=== PATIENT | male | born 1955 | race Caucasian/White ===

== ENCOUNTER → 2017-09-10 12:16 | Outpatient (CLI) | payer SELFPAY ==
[2017-09-10 12:36] LABS: Add Manual Diff / Slide Review NO; Basophils Percent Auto 1.2 % (0-2); Eosinophils Percent Auto 6.7 % (2-4); Hematocrit 38.8 % (41-53); Hemoglobin 13.3 g/dL (13.5-17.5); Lymphocytes Percent Auto 32.1 % (25-40); Mean Corpuscular HGB Conc 34.4 % (30-36); Mean Corpuscular Hemoglobin 29.8 PG (26-34); Mean Corpuscular Volume 86.6 fL (80-100); Monocytes Percent Auto 7.2 % (3-14); Neutrophils Absolute Auto 2900 /uL (3000-5900); Neutrophils Percent Auto 52.8 % (50-75); Platelet Count 238 X10^3/uL (150-400); Red Blood Cell Count 4.48 X10^6/uL (4.5-5.9); Red Cell Distribution Width 12.9 % (11.6-14.8); White Blood Cell Count 5.5 X10^3/uL (4.5-11.0)
[2017-09-10 12:46] LABS: Blood Urea Nitrogen 18 mg/dL (9-20); Calcium 9.1 mg/dL (8.4-10.2); Carbon Dioxide 29 mmol/L (22-32); Chloride 99 mmol/L (98-107); Estimated Glomerular Filt Rate > 60.0 mL/min (>60); Glucose 97 mg/dL (80-110); HEMOLYSIS < 15 (0-50); Sodium 138 mmol/L (137-145)
== END ==
PROVIDERS: PCP Family Medicine; Visit Provider Family Medicine
DX: I10 Essential (primary) hypertension (principal)
CPT/HCPCS: 36415; 80048; 85025

== ENCOUNTER → 2019-11-03 10:23 | Outpatient (CLI) | payer OTHER, SELFPAY ==
[2019-11-03 12:24] LABS: Blood Urea Nitrogen 16 mg/dL (9-20); Calcium 9.5 mg/dL (8.4-10.2); Carbon Dioxide 34 mmol/L (22-32); Chloride 99 mmol/L (98-107); Cholesterol 181 mg/dL (140-199); Estimated Glomerular Filt Rate > 60.0 mL/min (>60); Glucose 98 mg/dL (80-110); HDL Cholesterol 49 mg/dL (40-60); HEMOLYSIS < 15 (0-50); LDL Cholesterol Calculated 104 mg/dL (<100); Potassium 4.2 mmol/L (3.4-5.1); Sodium 136 mmol/L (137-145); Triglycerides 140 mg/dL (35-150)
[2019-11-03 12:32] LABS: Vitamin D 25 Hydroxy (D3) 14.9 ng/mL (30.0-100.0)
[2019-11-03 12:51] LABS: TSH w/ Reflex to FT4 1.94 uIU/mL (0.47-4.68)
[2019-11-03 12:53] LABS: Prostate Specific Antigen Scrn 0.162 ng/mL (0.1-4.0)
== END ==
PROVIDERS: PCP Student in an Organized Health Care Education/Training Program; Referring Provider Student in an Organized Health Care Education/Training Program; Visit Provider Student in an Organized Health Care Education/Training Program
DX: Z12.5 Encounter for screening for malignant neoplasm of prostate (principal); F32.9 Major depressive disorder, single episode, unspecified; I10 Essential (primary) hypertension; R68.82 Decreased libido; E55.9 Vitamin D deficiency, unspecified; Z13.220 Encounter for screening for lipoid disorders
CPT/HCPCS: 36415; 80048; 80061; 82306; 84443; G0103

== ENCOUNTER → 2019-12-01 09:08 | Outpatient (CLI) | payer OTHER, SELFPAY ==
--- NOTE | 2019-12-01 09:09 | DI.ECHO.S_ITS ---
[facility] +---------+ : : [address] : : : : [id number] : : : : Phone: [phone]+ Echocardiogram Report + + :Name: CAROL MATHEWS Study Date: 12/01/2019 Height: 70 in : :[facility] Weight: 250 lb : : Gender: Male BSA: 2.3 m2 : :: 1955 Age: 64 yrs BP: 153/85 mmHg: :Reason For Study: LVH ON EKG, HYPERTENSION : :Ordering Physician: WENDY HASTINGS Performed By: Jessi Wolf : :Referring: WENDY HASTINGS : + + Interpretation Summary 1) Normal left ventricular thickness, size, wall motion and systolic function (EF 55-60%). 2) Normal right ventricular size and function. 3) No significant valvular abnormalities. 4) Hypertnsion present [facility] study (BP 153/85mmHg). 5) No prior Echo available for comparison. Procedure: A two-dimensional transthoracic echocardiogram with color flow and Doppler was performed. The study quality was technically adequate. There is no prior echocardiogram noted for this patient. The patient was in sinus bradycardia with heart rates between 53-60 bpm during the exam. Left Ventricle: The left ventricle is normal in size and wall thickness. The ejection fraction is estimated to be 55-60%. Diastolic parameters suggest a relaxation abnormality of the left ventricle, consistent with probable normal filling pressures. Right Ventricle: The right ventricle is normal in size and function. Atria: The left atrium is moderately dilated. Right atrial size is normal. There is no Doppler evidence for an interatrial shunt. Mitral Valve: The mitral valve is normal in structure and function. There is trace mitral regurgitation. Aortic Valve: The aortic valve is trileaflet. There is discrete nodular thickening of the right coronary cusp. There is no aortic valve stenosis. No aortic regurgitation is present. Tricuspid Valve: The tricuspid valve is normal in structure and function. Pulmonary artery pressures cannot be estimated because of the lack of a measurable TR jet velocity. There is trace tricuspid regurgitation. Pulmonic Valve: The pulmonic valve is normal in structure and function. There is no pulmonic valvular regurgitation. Great Vessels: The aortic root is normal size. The dimensions of the ascending aorta are normal. The inferior vena cava was not well visualized. Pericardium/ Pleura There is no pericardial effusion. There is no pleural effusion. MMode/2D Measurements & Calculations LVIDd: 5.6 cm LVOT diam: 2.1 cm LVIDs: 3.5 cm Ao root diam: 3.0 cm FS: 38.4 % asc Aorta Diam: 3.5 cm EPSS: 1.6 cm Ao Arch Diam (Prox Trans): 3.3 cm IVSd: 0.97 cm LVPWd: 0.90 cm LV hernandez. diameter/BSA (cm/m^2): 2.4 LV sys. diameter/BSA (cm/m^2): 1.5 LA A2 area: 23.1 cm2 RA long axis: 4.8 cm LA A4 area: 27.7 cm2 RA area: 19.5 cm2 LA length (vol): 6.2 cm RA vol: 67.1 ml LA vol: 87.4 ml RA : 29.3 ml/m2 LA vol index: 38.1 ml/m2 RVD1 (basal): 3.9 cm TAPSE: 2.1 cm Doppler Measurements & Calculations Ao V2 max: 177.9 cm/sec LVOT Max Js: 115.0 cm/sec Ao V2 mean: 119.7 cm/sec LV V1 max P.3 mmHg Ao max P.7 mmHg LV V1 VTI: 25.9 cm Ao mean P.5 mmHg KEN(I,D): 2.0 cm2 Ao V2 VTI: 44.2 cm KEN(V,D): 2.2 cm2 sev ratio: 0.59 KEN indexed to BSA (cm^2/m^2): 0.88 MV E max js: 109.2 cm/sec PA V2 max: 75.9 cm/sec MV A max js: 86.9 cm/sec PA V2 mean: 49.5 cm/sec MV E/A: 1.3 PA mean P.1 mmHg Med Peak E' Js: 8.4 cm/sec PA pr(Accel): 22.5 mmHg E/E' med: 13.0 Lat Peak E' Js: 10.6 cm/sec E/E' lat: 10.3 E/e' average: 11.6 MV dec time: 0.23 sec SV([facility]): 89.2 ml Reading Physician:12:33 PM
== END ==
PROVIDERS: PCP Student in an Organized Health Care Education/Training Program; Referring Provider Student in an Organized Health Care Education/Training Program; Visit Provider Student in an Organized Health Care Education/Training Program
DX: R94.31 Abnormal electrocardiogram [ECG] [EKG] (principal); I10 Essential (primary) hypertension
CPT/HCPCS: 93306

== ENCOUNTER → 2021-02-22 07:04 | Outpatient (CLI) | payer OTHER, SELFPAY ==
[2021-02-22 08:56] LABS: BUN Creatinine Ratio 19.3 (6-22); Blood Urea Nitrogen 17 mg/dL (9-20); Calcium 9.7 mg/dL (8.4-10.2); Carbon Dioxide 31 mmol/L (22-32); Chloride 97 mmol/L (98-107); Estimated Glomerular Filt Rate > 60.0 mL/min (>60); Glucose 123 mg/dL (80-110); HEMOLYSIS < 15 (0-50); Potassium 4.2 mmol/L (3.4-5.1); Sodium 137 mmol/L (137-145)
[2021-02-22 09:14] LABS: Vitamin D 25 Hydroxy (D3) 30.4 ng/mL (30.0-100.0)
[2021-02-24 12:12] LABS: Fecal Immunochemical Test Negative (Negative)
== END ==
PROVIDERS: PCP Student in an Organized Health Care Education/Training Program; Referring Provider Student in an Organized Health Care Education/Training Program; Visit Provider Student in an Organized Health Care Education/Training Program
DX: I10 Essential (primary) hypertension (principal); Z12.11 Encounter for screening for malignant neoplasm of colon; E55.9 Vitamin D deficiency, unspecified
CPT/HCPCS: 36415; 80048; 82274; 82306

== ENCOUNTER → 2022-02-14 15:39 | Outpatient (CLI) | payer OTHER, SELFPAY ==
[2022-02-14 16:55] LABS: BUN Creatinine Ratio 16.9 (6-22); Blood Urea Nitrogen 15 mg/dL (9-20); Calcium 9.2 mg/dL (8.4-10.2); Carbon Dioxide 28 mmol/L (22-32); Chloride 99 mmol/L (98-107); Estimated Glomerular Filt Rate > 60 mL/min (>60); Glucose 96 mg/dL (80-110); HEMOLYSIS < 15 (0-50); Potassium 3.7 mmol/L (3.4-5.1); Sodium 137 mmol/L (137-145)
[2022-02-14 23:22] LABS: Prostate Specific Antigen Scrn 0.173 ng/mL (0.1-4.0)
[2022-02-15 16:43] LABS: Hep C Virus Ab w/Reflex Quant NEGATIVE s/c (NEGATIVE)
== END ==
PROVIDERS: PCP Student in an Organized Health Care Education/Training Program; Referring Provider Student in an Organized Health Care Education/Training Program; Visit Provider Student in an Organized Health Care Education/Training Program
DX: Z12.5 Encounter for screening for malignant neoplasm of prostate (principal); Z11.59 Encounter for screening for other viral diseases; I10 Essential (primary) hypertension
CPT/HCPCS: 36415; 80048; 86803; G0103

== ENCOUNTER → 2023-03-08 15:20 | Outpatient (CLI) | payer MEDICARE, SELFPAY ==
[2023-03-08 16:48] LABS: Add Manual Diff / Slide Review NO; Basophils Absolute Auto 100 /uL (0-100); Basophils Percent Auto 1.2 % (0-2); Eosinophils Absolute Auto 400 /uL (0-450); Hematocrit 38.1 % (41-53); Hemoglobin 12.8 g/dL (13.5-17.5); Lymphocytes Absolute Auto 1900 /uL (1100-4500); Lymphocytes Percent Auto 31.9 % (25-40); Mean Corpuscular HGB Conc 33.7 % (30-36); Mean Corpuscular Hemoglobin 29.3 PG (26-34); Mean Corpuscular Volume 86.9 fL (80-100); Monocytes Absolute Auto 500 /uL (0-900); Monocytes Percent Auto 8.6 % (3-14); Neutrophils Absolute Auto 3100 /uL (1500-7000); Neutrophils Percent Auto 52.3 % (50-75); Platelet Count 260 X10^3/uL (150-400); Red Blood Cell Count 4.38 X10^6/uL (4.5-5.9); Red Cell Distribution Width 13.3 % (11.6-14.8); White Blood Cell Count 5.9 X10^3/uL (4.5-11.0)
[2023-03-08 16:57] LABS: Hemoglobin A1C% w Est Avg Glu 5.8 % (4.0-6.0)
[2023-03-08 16:59] LABS: Alanine Aminotransferase 25 IU/L (<50); Albumin 4.5 g/dL (3.5-5.0); Albumin Globulin Ratio 1.7 (1.0-2.8); Alkaline Phosphatase 80 U/L (38-126); Aspartate Aminotransferase 31 IU/L (17-59); BUN Creatinine Ratio 22.9 (6-22); Bilirubin Total 0.4 mg/dL (0.2-1.3); Blood Urea Nitrogen 22 mg/dL (9-20); Calcium 10.1 mg/dL (8.4-10.2); Carbon Dioxide 33 mmol/L (22-32); Chloride 99 mmol/L (98-107); Cholesterol 256 mg/dL (140-199); Estimated Glomerular Filt Rate > 60 mL/min (>60); Globulin 2.6 g/dL (1.7-4.1); Glucose 76 mg/dL (80-110); HDL Cholesterol 53 mg/dL (40-60); HEMOLYSIS < 15 (0-50); LDL Cholesterol Calculated 168 mg/dL (<100); Potassium 4.6 mmol/L (3.4-5.1); Sodium 138 mmol/L (137-145); Total Protein 7.1 g/dL (6.3-8.2); Triglycerides 175 mg/dL (35-150)
[2023-03-08 17:30] LABS: Prostate Specific Antigen < 0.064 ng/mL (0.10-4.00)
[2023-03-08 17:48] LABS: Vitamin B12 387 pg/mL (239-931)
== END ==
PROVIDERS: PCP Family Medicine; Referring Provider Family Medicine; Visit Provider Family Medicine
DX: Z00.00 Encounter for general adult medical examination without abnormal findings (principal); I10 Essential (primary) hypertension; R41.3 Other amnesia
CPT/HCPCS: 36415; 80053; 80061; 82607; 83036; 84153; 85025

== ENCOUNTER 2023-03-28 09:03 | Day surgery (SDC) | payer MEDICARE, SELFPAY ==
--- NOTE | 2023-03-28 | PATH_ITS ---
[facility] Accession Number: [id number] No. of containers..05 Tissue . 01 Material submitted: . PART A: cecum - CECAL POLYP PART B: colon - ASCENDING POLYPS PART C: colon - TRANSVERSE POLYP PART D: colon - DESCENDING POLYPS PART E: rectum - RECTAL POLYPS . 01 Diagnosis: A. Cecal Polyp, Biopsy: Sessile serrated adenoma. . B. Ascending Colon Polyps, Biopsy: Sessile serrated adenomas. . C. Transverse Colon Polyp, Biopsy: Tubular adenoma. . D. Descending Colon Polyps, Biopsy: Hyperplastic polyp. Additional colonic mucosa with no significant diagnostic alterations. . E. Rectal Polyps, Biopsy: Hyperplastic polyps. [facility] 04/01/2023 1346 Local . 01 Electronically signed: . Karina Chavez MD, Pathologist NPI- [id number] . 01 Gross description: . Part A: CECAL POLYP: Received in formalin is 1 fragment(s) of brown, soft tissue measuring 0.7 x 0.4 x 0.2 cm submitted entirely in 1 cassette(s) Part B: ASCENDING POLYPS: Received in formalin is multiple fragment(s) of brown, soft tissue measuring 1.2 x 0.5 x 0.1 cm in aggregate submitted entirely in 1 cassette(s) Part C: TRANSVERSE POLYP: Received in formalin is 1 fragment(s) of brown, soft tissue measuring 0.8 x 0.3 x 0.1 cm submitted entirely in 1 cassette(s) Part D: DESCENDING POLYPS: Received in formalin is 1 fragment(s) of brown, soft tissue measuring 0.3 x 0.3 x 0.1 cm to 0.2 x 0.1 x 0.1 cm submitted entirely in 1 cassette(s) Part E: RECTAL POLYPS: Received in formalin is multiple fragment(s) of brown, soft tissue measuring 1.2 x 0.5 x 0.1 cm in aggregate submitted entirely in 1 cassette(s) /AAY 03/30/2023 0558 Local . 01 Pathologist provided ICD-10: D12.0, D12.2, D12.3, D12.4, D12.8 . 01 CPT . 962839, 114374, 118446, 270359, [id number] Specimen Comment: A courtesy copy of this report has been sent to [phone] Performed at: 01 [facility] [address] [place] [address], [place], [place] [id number] MD Kiran Gayle MD Phone: [phone]
[2023-03-28 10:28] VITALS: BP 143/85; PULSE 86; RESP 16; TEMP 36.6; O2SAT 95
--- NOTE | 2023-03-28 10:30 | P.HP_ITS ---
History of Present Illness History of Present Illness Date Patient Seen: 03/28/23 Time Patient Seen: 10:30 Chief complaint: Colonoscopy Narrative: Javi is a 67-year-old man who is here for colonoscopy. His last 1 was about 14 years ago. No family history of colon cancer. [facility], [facility] Medical History (Updated 03/28/23 @ 10:31 by Curtis Lopez MD) Depression (10/26/14) Encounter for subsequent annual wellness visit (AWV) in Medicare patient Pure hypercholesterolemia Vision disorder GERD (gastroesophageal reflux disease) Hypertension Depression Bipolar disorder (~2001) Anxiety Epilepsy (~2009) Seizure Restless leg syndrome ADHD (~2001) Mumps (~1960) Chicken pox (~1959) Vertigo Tinnitus Hearing loss (~1972) Reduced libido (04/02/17) Surgical History (Updated 07/10/18 @ 22:11 by Lis Mata) Status post knee surgery (~1979) Status post biopsy (~1989) History of cataract removal with insertion of prosthetic lens (~1997) History of cataract removal with insertion of prosthetic lens (~1999) Family History (Updated 07/10/18 @ 22:12 by Lis Mata) Father Cardiac disease Mother No problems noted. Social History Smoking Status: Never smoker Meds Home Medications and Allergies Home Medications Medication Instructions Recorded Confirmed Type esomeprazole magnesium 20 mg 20 mg PO DAILY 02/14/22 03/08/23 History capsule,delayed release (Nexium) lisinopril 10 mg tablet 10 mg PO QDAY #90 tabs 05/07/22 03/28/23 Rx triamterene 37.5 1 cap PO QDAY #90 caps 11/20/22 03/28/23 Rx mg-hydrochlorothiazide 25 mg capsule finasteride 5 mg tablet See Rx Instructions .Route 12/28/22 03/28/23 Rx .COMPLEX #90 tabs hydroxyzine HCl 25 mg tablet 25 mg PO TID itching #270 tabs 01/15/23 03/28/23 Rx gabapentin 300 mg capsule 300 mg PO TID #270 caps 02/06/23 03/28/23 Rx fluoxetine 20 mg capsule 60 mg (3 x 20 mg) PO DAILY #270 03/26/23 03/28/23 Rx caps Allergies Allergy/AdvReac Type Severity Reaction Status Date / Time pollen Allergy Unknown Uncoded 01/18/24 10:24 Exam Const General: No acute distress Resp Effort & Inspection: normal respiratory effort Assessment & Plan Assessment and plan (1) Colon cancer screening: Status: Acute Plan Javi is a 67-year-old man who is here for colon cancer screening. We reviewed the risks and benefits of colonoscopy for colon cancer screening and he would like to proceed.
--- NOTE | 2023-03-28 10:30 | PM.OP.COLON ---
Operative Date/Time/Diagnoses Date of procedure: 03/28/23 Time of procedure: 11:46 Pre-op diagnosis: Colon cancer screening Post-op diagnosis: same Procedure & Clinicians Study performed: Colonoscopy Same procedure as scheduled: Yes Surgeon: Curtis Lopez Procedure Notes Procedure in detail: Surgeon: Curtis Lopez MD Anesthesia: Nataly Coates CRNA Procedure: The patient was brought to the endoscopy suite, placed in left lateral decubitus position. The patient was connected to monitoring devices. A time-out was performed. Sedation was administered. Once the patient was adequately sedated, a digital rectal exam was performed and was normal. The scope was then inserted and advanced with some difficulty to the cecum where the appendiceal orifice was identified and photographed. The scope was then slowly withdrawn over greater than 6 minutes. The mucosa was thoroughly inspected. There was a 7 mm polyp in the cecum removed with a cold snare. There was a pair of 7 mm polyps in the ascending colon removed with cold snare and sent together. There was a 5 mm polyp in the transverse colon removed with a cold snare. There were 2 7 mm polyps in the descending colon removed with cold snare. There were numerous polyps in the rectum, most likely hyperplastic polyps. A few of these were removed with a cold snare and several were removed with a Jumbo cold forceps. There were at least 5 polyps removed from the rectum. The scope was retroflexed in the rectum. No other abnormalities were seen. The scope was straightened and removed. The patient was awakened and brought to recovery. Scope withdrawal time: 28 minutes Sedation time: 45 minutes EBL: 5 mL Findings: Multiple subcentimeter polyps as described above Post-procedure Disposition: PACU
[2023-03-28 11:50] VITALS: BP 102/68; PULSE 82; RESP 12; TEMP 36.8; O2SAT 94
[2023-03-28 11:54] VITALS: PULSE 76; RESP 15; TEMP 36.7; O2SAT 94
[2023-03-28 11:55] VITALS: BP 115/74
[2023-03-28 12:00] VITALS: BP 117/71; PULSE 77; RESP 12; O2SAT 94
[2023-03-28 12:07] VITALS: BP 119/70; PULSE 75; RESP 15; O2SAT 94
== END 2023-03-28 12:15 | disposition home or self-care (01) ==
PROVIDERS: PCP Family Medicine; Referring Provider Surgery; Visit Provider Surgery
PROC: 0DJD8ZZ Inspection of Lower Intestinal Tract, Via Natural or Artificial Opening Endoscopic (ICD-10-PCS; CPT 45378; principal; 2023-03-28 10:15)
DX: Z12.11 Encounter for screening for malignant neoplasm of colon (principal); D12.0 Benign neoplasm of cecum; D12.2 Benign neoplasm of ascending colon; D12.3 Benign neoplasm of transverse colon; K63.5 Polyp of colon; K62.1 Rectal polyp
CPT/HCPCS: 45385; 45380; J2704

== ENCOUNTER → 2023-04-16 15:20 | Outpatient (CLI) | payer MEDICARE, SELFPAY ==
[2023-04-16 16:59] LABS: Influenza A - CEPHEID Flu A NEGATIVE (NEGATIVE); Influenza B - CEPHEID Flu B NEGATIVE (NEGATIVE); Respiratory Syncytial Virus Negative (Negative)
[2023-04-16 17:07] LABS: COVID-19 CEPHEID 4-PLEX PCR POSITIVE (Negative)
== END ==
PROVIDERS: PCP Family Medicine; Visit Provider Family Medicine
DX: J02.9 Acute pharyngitis, unspecified (principal); J34.89 Other specified disorders of nose and nasal sinuses; J06.9 Acute upper respiratory infection, unspecified
CPT/HCPCS: 0241U

== ENCOUNTER → 2023-05-02 13:48 | Outpatient (CLI) | payer MEDICARE, SELFPAY | LOC: CAR 13:49 | PROVIDERS: PCP Family Medicine; Referring Provider Family Medicine; Visit Provider Family Medicine | DX: R00.2 Palpitations (principal) | CPT/HCPCS: 93246 ==

== ENCOUNTER → 2023-07-05 15:09 | Outpatient (CLI) | payer MEDICARE, SELFPAY ==
--- NOTE | 2023-07-05 15:10 | DI.NM.S_ITS ---
PROCEDURE: NM EXERCISE TREADMILL NON NUC COMPARISON: None. INDICATIONS: chest pain FINDINGS: The patient exercised for 4 minutes and 36 seconds reaching 97% of maximum predicted heart rate. Appropriate BP response to exercise. 7.0 METs, ROSA +29%. No angina and no significant ectopy during the study. Mild horizontal ST depressions in the lateral leads during recovery. IMPRESSION: Abnormal treadmill ECG only stress test with mild horizontal ST depressions in the lateral leads during recovery. No angina during the study. Reduced exercise tolerance (7.0 METs, ROSA +29%). Recommend exercise stress test with imaging (example nuclear stress test). Dictated by: Ashley De Luna MD on 07/08/2023 at 13:06 Approved by: Ashley De Luna MD on 07/08/2023 at 13:10
== END ==
PROVIDERS: PCP Family Medicine; Referring Provider Family Medicine; Visit Provider Family Medicine
DX: R07.89 Other chest pain (principal); I47.10 Supraventricular tachycardia, unspecified; R00.2 Palpitations; R94.39 Abnormal result of other cardiovascular function study
CPT/HCPCS: 93017

== ENCOUNTER 2023-11-03 06:32 | Emergency (ER) | payer MEDICARE, SELFPAY ==
[2023-11-03] VITALS (39 sets, daily range): BP systolic 87–143; BP diastolic 46–80; PULSE 49–74; RESP 12–45; TEMP 36.9–37.1; O2SAT 96–100; BMI 37.3
--- NOTE | 2023-11-03 06:44 | DI.RAD.S_ITS ---
PROCEDURE: XR CHEST 1V INDICATIONS: syncope TECHNIQUE: One view of the chest was acquired. COMPARISON: [facility], CT, CT HEAD/BRAIN WO CON, 11/03/2023, 6:49. FINDINGS: Surgical changes and devices: None. Lungs and pleura: Lungs are clear. No pleural effusions or pneumothorax. Mediastinum: Mediastinal contours appear normal. Heart size is mildly enlarged. There is a likely hiatal hernia. Atherosclerotic calcification of the aortic arch is noted. Bones and chest wall: No suspicious bony lesions. Age-appropriate bony degenerative changes are seen. Overlying soft tissues appear unremarkable. IMPRESSION: Clear lungs. Mild cardiomegaly. Dictated by: Lee Sharpe M.D. on 11/03/2023 at 6:10 Approved by: Lee Sharpe M.D. on 11/03/2023 at 6:11
--- NOTE | 2023-11-03 06:44 | DI.CT.S_ITS ---
PROCEDURE: CT HEAD/BRAIN WO CON INDICATIONS: syncope, probable head inj TECHNIQUE: Noncontrast 4.5 mm thick angled axial sections acquired from the foramen magnum to the vertex, with coronal and sagittal reformats. For radiation dose reduction, the following was used: automated exposure control, adjustment of mA and/or kV according to patient size. COMPARISON: [facility], CR, XR CHEST 1V, 11/03/2023, 6:43. FINDINGS: Image quality: Diagnostic. CSF spaces: Basal cisterns are patent. No extra-axial fluid collections. The ventricles are symmetric in size and shape. Brain: No intracranial bleeds or masses. There is cerebral volume loss for age, with resultant ventricular and sulcal prominence. There are periventricular and deep white matter chronic small vessel ischemic changes. There is intracranial internal carotid artery atherosclerosis. Skull and face: Calvarium and visualized facial bones appear intact, without suspicious lesions. Sinuses: Visualized sinuses and mastoids are clear. IMPRESSION: No acute intracranial hemorrhage is seen. No acute intracranial pathology. Dictated by: Lee Sharpe M.D. on 11/03/2023 at 6:11 Approved by: Lee Sharpe M.D. on 11/03/2023 at 6:12
--- NOTE | 2023-11-03 07:25 | EKG_ITS ---
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
[2023-11-03] MEDS: SODIUM CHLORIDE 0.9% 1,000 ML 1000 ML IV ×2 (07:26→08:02)
[2023-11-03 07:32] LABS: Add Manual Diff / Slide Review NO; Basophils Absolute Auto 0 /uL (0-100); Basophils Percent Auto 0.4 % (0-2); Eosinophils Absolute Auto 300 /uL (0-450); Eosinophils Percent Auto 3.7 % (2-4); Hematocrit 39.1 % (41-53); Hemoglobin 13.3 g/dL (13.5-17.5); Lymphocytes Absolute Auto 1200 /uL (1100-4500); Lymphocytes Percent Auto 17.3 % (25-40); Mean Corpuscular HGB Conc 33.9 % (30-36); Mean Corpuscular Hemoglobin 29.5 PG (26-34); Monocytes Absolute Auto 400 /uL (0-900); Monocytes Percent Auto 5.7 % (3-14); Neutrophils Absolute Auto 5200 /uL (1500-7000); Neutrophils Percent Auto 72.9 % (50-75); Platelet Count 218 X10^3/uL (150-400); Red Blood Cell Count 4.49 X10^6/uL (4.5-5.9); Red Cell Distribution Width 13.3 % (11.6-14.8); White Blood Cell Count 7.1 X10^3/uL (4.5-11.0)
[2023-11-03 07:38] LABS: INR 1.1 (0.9-1.3); Prothrombin Time 12.1 SECONDS (9.4-12.5)
--- NOTE | 2023-11-03 07:39 | ED.FALL ---
HPI - Fall General Chief Complaint: Fall Stated Complaint: Syncope in shower Time Seen by Provider: 11/03/23 06:35 Source: patient and EMS Mode of arrival: EMS History of Present Illness HPI Narrative: 68-year-old gentleman with a history of hypertension hyperlipidemia, reflux, BPH, depression, history of palpitations with recent Zio patch confirming episodes of prolonged SVT. Patient notes that he will have episodes will he will sleep for multiple days at a time without eating or drinking. Apparently he woke up this morning after almost 48 hours of sleeping got up to take shower, was bending forward and had a brief episode of syncope. reports that she was in the bathroom with the time, she was able to help her to the floor there was no trauma. Patient states that he has not had much to eat or drink over the last 48 hours, does not find this unusual. He states he has been getting up to void he has not had a bowel movement in a couple of days, minimal water but apparently some coffee and some diet soda per his . Neither of the find this behavior unusual for him. No reports of fevers, cough, seizure-like activity, chest pain, palpitations, abdominal pain. Patient and both note that he did not have a postictal. Once he was recovered after a syncopal episode Related Data Home Medications Medication Instructions Recorded Confirmed esomeprazole magnesium 20 mg 20 mg PO DAILY 02/14/22 04/16/23 capsule,delayed release (Nexium) loratadine 10 mg tablet 10 mg PO DAILY 04/16/23 04/16/23 Previous Rx's Medication Instructions Recorded fluoxetine 20 mg capsule 60 mg (3 x 20 mg) PO DAILY #270 03/26/23 caps atorvastatin 40 mg tablet (Lipitor) 40 mg PO BEDTIME cholesterol #90 04/16/23 tabs lisinopril 10 mg tablet 10 mg PO QDAY #90 tabs 04/16/23 triamterene 37.5 1 cap PO QDAY #90 caps 04/16/23 mg-hydrochlorothiazide 25 mg capsule gabapentin 300 mg capsule See Rx Instructions .Route 10/15/23 .COMPLEX #270 caps finasteride 5 mg tablet 5 mg PO DAILY #90 tabs 10/29/23 hydroxyzine HCl 25 mg tablet 25 mg PO 3XD for itch #270 tabs 10/29/23 Allergies Allergy/AdvReac Type Severity Reaction Status Date / Time pollen Allergy Unknown Uncoded 04/16/23 14:20 Review of Systems Review of Systems Narrative: Pertinent positive and negative findings as per HPI Patient History Medical History (Updated 11/03/23 @ 09:39 by Danielle Mcwilliams MD) SVT (supraventricular tachycardia) Impaired fasting glucose Mixed hyperlipidemia Heart murmur Depression (10/26/14) Encounter for subsequent annual wellness visit (AWV) in Medicare patient Pure hypercholesterolemia Vision disorder GERD (gastroesophageal reflux disease) Hypertension Depression Bipolar disorder (~2001) Anxiety Epilepsy (~2009) Seizure Restless leg syndrome ADHD (~2001) Mumps (~1960) Chicken pox (~1959) Vertigo Tinnitus Hearing loss (~1972) Reduced libido (04/02/17) Surgical History (Updated 07/10/18 @ 22:11 by Lis Mata) Status post knee surgery (~1979) Status post biopsy (~1989) History of cataract removal with insertion of prosthetic lens (~1997) History of cataract removal with insertion of prosthetic lens (~1999) Family History (Updated 07/10/18 @ 22:12 by Lis Mata) Father Cardiac disease Mother No problems noted. Social History Smoking Status: Never smoker alcohol intake: current Smoking Status: Never smoker alcohol intake frequency: holidays/special occasions only Substance Use Type: does not use Exam Initial Vital Signs Initial Vital Signs: Vital Signs Temperature 98.5 F 11/03/23 06:44 Pulse Rate 49 L 11/03/23 06:44 Respiratory Rate 22 11/03/23 06:44 Blood Pressure 109/55 L 11/03/23 06:44 Pulse Oximetry 98 11/03/23 06:44 Oxygen Delivery Method Room Air 11/03/23 06:44 General: Pale, dry mucous membranes, alert, appropriate and able to cooperate completely with exam and history HEENT: Dry mucous membranes, normal sclera with reactive pupils, Respiratory: Lungs are clear to auscultation, no wheezing no rales no rhonchi. Full and symmetrical air movement Cardiac: Regular rate and rhythm, 3/6 systolic murmur Abdomen: Soft, nontender, good bowel tones, no flank pain Skin: Pale but otherwise Warm and dry, no rashes Neurologic: Grossly neurologically intact with no obvious asymmetries or abnormalities Extremities: No trauma, well perfused Psych: Cooperative, appropriate insight and affect Course Orders Ordered: ED Orders 11/03/23 06:44 CT head/brain wo con Stat Chest [XR chest 1V] Stat UA Complete [Urinalysis and Microscopic] Stat EKG-12 Lead Stat 11/03/23 07:24 BNP [NT-proBNP (BNP-Adult 18+)] Stat CBC Auto Diff [Complete Blood Count AUTO DIFF] Stat CMP [Comprehensive Metabolic Panel] Stat MAG [Magnesium] Stat PT [Prothrombin Time INR] Stat TSH [Thyroid Stimulating Hormone] Stat Troponin & CK Cardiac Panel Stat 11/03/23 07:32 Type and Screen Stat 11/03/23 09:30 Troponin I Stat Discontinued Medications Sodium Chloride (Normal Saline 0.9%) 1,000 mls @ 1,000 mls/hr IV BOLUS ONE Stop: 11/03/23 07:42 Last Infusion: 11/03/23 09:24 Dose: Infused Documented By: Admin: 11/03/23 07:26 Dose: 1,000 mls/hr Documented By: PILAR Sodium Chloride (Normal Saline 0.9%) 1,000 mls @ 1,000 mls/hr IV BOLUS ONE Stop: 11/03/23 08:57 Last Infusion: 11/03/23 09:24 Dose: Infused Documented By: Admin: 11/03/23 08:02 Dose: 1,000 mls/hr Documented By: PILAR Vital Signs Vital signs: Vital Signs - 8 hr 11/03/23 06:44 11/03/23 07:04 11/03/23 07:05 Temperature 98.5 F Pulse Rate 49 L 52 L Pulse Rate [Orthostatic Lying] Pulse Rate [Orthostatic Sitting] Pulse Rate [Orthostatic Standing] Respiratory Rate 22 Blood Pressure 109/55 L 115/53 L Blood Pressure [Orthostatic Lying] Blood Pressure [Orthostatic Sitting] Blood Pressure [Orthostatic Standing] Pulse Oximetry 98 99 Oxygen Delivery Method Room Air 11/03/23 07:05 11/03/23 07:20 11/03/23 07:20 Temperature Pulse Rate 53 L 54 L Pulse Rate [Orthostatic Lying] Pulse Rate [Orthostatic Sitting] Pulse Rate [Orthostatic Standing] Respiratory Rate 13 17 Blood Pressure 109/53 L Blood Pressure [Orthostatic Lying] Blood Pressure [Orthostatic Sitting] Blood Pressure [Orthostatic Standing] Pulse Oximetry 100 100 Oxygen Delivery Method 11/03/23 07:30 11/03/23 07:41 11/03/23 07:41 Temperature Pulse Rate 53 L 53 L Pulse Rate [Orthostatic Lying] Pulse Rate [Orthostatic Sitting] Pulse Rate [Orthostatic Standing] Respiratory Rate 13 24 Blood Pressure 98/46 L Blood Pressure [Orthostatic Lying] Blood Pressure [Orthostatic Sitting] Blood Pressure [Orthostatic Standing] Pulse Oximetry 99 99 Oxygen Delivery Method 11/03/23 07:45 11/03/23 07:45 11/03/23 07:57 Temperature Pulse Rate 52 L 51 L Pulse Rate [Orthostatic Lying] Pulse Rate [Orthostatic Sitting] Pulse Rate [Orthostatic Standing] Respiratory Rate 17 17 Blood Pressure 87/51 L Blood Pressure [Orthostatic Lying] Blood Pressure [Orthostatic Sitting] Blood Pressure [Orthostatic Standing] Pulse Oximetry 98 100 Oxygen Delivery Method 11/03/23 07:57 11/03/23 08:00 11/03/23 08:00 Temperature Pulse Rate 52 L Pulse Rate [Orthostatic Lying] Pulse Rate [Orthostatic Sitting] Pulse Rate [Orthostatic Standing] Respiratory Rate 24 Blood Pressure 100/55 L 109/56 L Blood Pressure [Orthostatic Lying] Blood Pressure [Orthostatic Sitting] Blood Pressure [Orthostatic Standing] Pulse Oximetry 100 Oxygen Delivery Method 11/03/23 08:05 11/03/23 08:05 11/03/23 08:10 Temperature Pulse Rate 49 L 50 L Pulse Rate [Orthostatic Lying] Pulse Rate [Orthostatic Sitting] Pulse Rate [Orthostatic Standing] Respiratory Rate 16 14 Blood Pressure 116/60 Blood Pressure [Orthostatic Lying] Blood Pressure [Orthostatic Sitting] Blood Pressure [Orthostatic Standing] Pulse Oximetry 100 98 Oxygen Delivery Method 11/03/23 08:10 11/03/23 08:35 11/03/23 08:40 Temperature Pulse Rate 49 L 49 L Pulse Rate [Orthostatic Lying] Pulse Rate [Orthostatic Sitting] Pulse Rate [Orthostatic Standing] Respiratory Rate 13 Blood Pressure 117/60 Blood Pressure [Orthostatic Lying] Blood Pressure [Orthostatic Sitting] Blood Pressure [Orthostatic Standing] Pulse Oximetry 100 98 Oxygen Delivery Method 11/03/23 08:40 11/03/23 08:45 11/03/23 08:45 Temperature Pulse Rate 50 L Pulse Rate [Orthostatic Lying] Pulse Rate [Orthostatic Sitting] Pulse Rate [Orthostatic Standing] Respiratory Rate 16 Blood Pressure 126/66 116/61 Blood Pressure [Orthostatic Lying] Blood Pressure [Orthostatic Sitting] Blood Pressure [Orthostatic Standing] Pulse Oximetry 96 Oxygen Delivery Method 11/03/23 08:50 11/03/23 08:50 11/03/23 08:55 Temperature Pulse Rate 66 54 L Pulse Rate [Orthostatic Lying] Pulse Rate [Orthostatic Sitting] Pulse Rate [Orthostatic Standing] Respiratory Rate 45 H 17 Blood Pressure 120/66 Blood Pressure [Orthostatic Lying] Blood Pressure [Orthostatic Sitting] Blood Pressure [Orthostatic Standing] Pulse Oximetry 97 96 Oxygen Delivery Method 11/03/23 08:55 11/03/23 09:00 11/03/23 09:00 Temperature Pulse Rate 52 L Pulse Rate [Orthostatic Lying] Pulse Rate [Orthostatic Sitting] Pulse Rate [Orthostatic Standing] Respiratory Rate 29 H Blood Pressure 127/66 121/63 Blood Pressure [Orthostatic Lying] Blood Pressure [Orthostatic Sitting] Blood Pressure [Orthostatic Standing] Pulse Oximetry 98 Oxygen Delivery Method 11/03/23 09:05 11/03/23 09:05 11/03/23 09:10 Temperature Pulse Rate 51 L 52 L Pulse Rate [Orthostatic Lying] Pulse Rate [Orthostatic Sitting] Pulse Rate [Orthostatic Standing] Respiratory Rate 13 18 Blood Pressure 121/62 Blood Pressure [Orthostatic Lying] Blood Pressure [Orthostatic Sitting] Blood Pressure [Orthostatic Standing] Pulse Oximetry 98 100 Oxygen Delivery Method 11/03/23 09:10 11/03/23 09:15 11/03/23 09:15 Temperature Pulse Rate 51 L Pulse Rate [Orthostatic Lying] Pulse Rate [Orthostatic Sitting] Pulse Rate [Orthostatic Standing] Respiratory Rate 17 Blood Pressure 125/62 120/60 Blood Pressure [Orthostatic Lying] Blood Pressure [Orthostatic Sitting] Blood Pressure [Orthostatic Standing] Pulse Oximetry 99 Oxygen Delivery Method 11/03/23 09:20 11/03/23 09:20 11/03/23 09:25 Temperature Pulse Rate 53 L 54 L Pulse Rate [Orthostatic Lying] Pulse Rate [Orthostatic Sitting] Pulse Rate [Orthostatic Standing] Respiratory Rate 12 12 Blood Pressure 126/60 Blood Pressure [Orthostatic Lying] Blood Pressure [Orthostatic Sitting] Blood Pressure [Orthostatic Standing] Pulse Oximetry 98 99 Oxygen Delivery Method 11/03/23 09:25 11/03/23 09:30 11/03/23 09:30 Temperature Pulse Rate 55 L Pulse Rate [Orthostatic Lying] Pulse Rate [Orthostatic Sitting] Pulse Rate [Orthostatic Standing] Respiratory Rate 13 Blood Pressure 123/62 127/66 Blood Pressure [Orthostatic Lying] Blood Pressure [Orthostatic Sitting] Blood Pressure [Orthostatic Standing] Pulse Oximetry 98 Oxygen Delivery Method 11/03/23 09:35 11/03/23 09:35 11/03/23 09:40 Temperature Pulse Rate 55 L Pulse Rate [Orthostatic Lying] Pulse Rate [Orthostatic Sitting] Pulse Rate [Orthostatic Standing] Respiratory Rate 21 Blood Pressure 125/65 122/60 Blood Pressure [Orthostatic Lying] Blood Pressure [Orthostatic Sitting] Blood Pressure [Orthostatic Standing] Pulse Oximetry 97 Oxygen Delivery Method 11/03/23 09:40 11/03/23 09:45 11/03/23 09:45 Temperature Pulse Rate 54 L 55 L Pulse Rate [Orthostatic Lying] Pulse Rate [Orthostatic Sitting] Pulse Rate [Orthostatic Standing] Respiratory Rate 18 22 Blood Pressure 117/56 L Blood Pressure [Orthostatic Lying] Blood Pressure [Orthostatic Sitting] Blood Pressure [Orthostatic Standing] Pulse Oximetry 98 99 Oxygen Delivery Method 11/03/23 09:50 11/03/23 09:50 11/03/23 09:55 Temperature Pulse Rate 51 L 73 Pulse Rate [Orthostatic Lying] Pulse Rate [Orthostatic Sitting] Pulse Rate [Orthostatic Standing] Respiratory Rate 15 Blood Pressure 122/62 Blood Pressure [Orthostatic Lying] Blood Pressure [Orthostatic Sitting] Blood Pressure [Orthostatic Standing] Pulse Oximetry 99 99 Oxygen Delivery Method 11/03/23 09:55 11/03/23 10:00 11/03/23 10:00 Temperature Pulse Rate 52 L Pulse Rate [Orthostatic Lying] Pulse Rate [Orthostatic Sitting] Pulse Rate [Orthostatic Standing] Respiratory Rate 16 Blood Pressure 132/72 132/62 Blood Pressure [Orthostatic Lying] Blood Pressure [Orthostatic Sitting] Blood Pressure [Orthostatic Standing] Pulse Oximetry 100 Oxygen Delivery Method 11/03/23 10:05 11/03/23 10:05 11/03/23 10:10 Temperature Pulse Rate 51 L 52 L Pulse Rate [Orthostatic Lying] Pulse Rate [Orthostatic Sitting] Pulse Rate [Orthostatic Standing] Respiratory Rate 17 21 Blood Pressure 126/60 Blood Pressure [Orthostatic Lying] Blood Pressure [Orthostatic Sitting] Blood Pressure [Orthostatic Standing] Pulse Oximetry 99 100 Oxygen Delivery Method 11/03/23 10:10 11/03/23 10:15 11/03/23 10:15 Temperature Pulse Rate 52 L Pulse Rate [Orthostatic Lying] Pulse Rate [Orthostatic Sitting] Pulse Rate [Orthostatic Standing] Respiratory Rate Blood Pressure 124/57 L 123/60 Blood Pressure [Orthostatic Lying] Blood Pressure [Orthostatic Sitting] Blood Pressure [Orthostatic Standing] Pulse Oximetry 100 Oxygen Delivery Method 11/03/23 10:20 11/03/23 10:20 11/03/23 10:25 Temperature Pulse Rate 52 L 53 L Pulse Rate [Orthostatic Lying] Pulse Rate [Orthostatic Sitting] Pulse Rate [Orthostatic Standing] Respiratory Rate 14 23 Blood Pressure 127/61 Blood Pressure [Orthostatic Lying] Blood Pressure [Orthostatic Sitting] Blood Pressure [Orthostatic Standing] Pulse Oximetry 98 99 Oxygen Delivery Method 11/03/23 10:25 11/03/23 10:28 11/03/23 10:28 Temperature Pulse Rate 69 Pulse Rate [Orthostatic Lying] Pulse Rate [Orthostatic Sitting] Pulse Rate [Orthostatic Standing] Respiratory Rate 19 Blood Pressure 116/60 134/63 Blood Pressure [Orthostatic Lying] Blood Pressure [Orthostatic Sitting] Blood Pressure [Orthostatic Standing] Pulse Oximetry 99 Oxygen Delivery Method 11/03/23 10:29 11/03/23 10:29 11/03/23 10:31 Temperature Pulse Rate 65 72 Pulse Rate [Orthostatic Lying] Pulse Rate [Orthostatic Sitting] Pulse Rate [Orthostatic Standing] Respiratory Rate 16 Blood Pressure 143/66 H Blood Pressure [Orthostatic Lying] Blood Pressure [Orthostatic Sitting] Blood Pressure [Orthostatic Standing] Pulse Oximetry 97 98 Oxygen Delivery Method 11/03/23 10:32 Temperature Pulse Rate Pulse Rate [Orthostatic Lying] 59 L Pulse Rate [Orthostatic Sitting] 74 Pulse Rate [Orthostatic Standing] 72 Respiratory Rate Blood Pressure Blood Pressure [Orthostatic Lying] 116/80 Blood Pressure [Orthostatic Sitting] 134/63 Blood Pressure [Orthostatic Standing] 143/66 H Pulse Oximetry Oxygen Delivery Method MDM - Fall Lab Data 11/03/23 07:24 11/03/23 07:24 Labs: Lab Results 11/03/23 11/03/23 11/03/23 Range/Units 07:24 07:32 09:30 WBC 7.1 (4.5-11.0) X10^3/uL RBC 4.49 L (4.5-5.9) X10^6/uL Hgb 13.3 L (13.5-17.5) g/dL Hct 39.1 L (41-53) % MCV 87.0 (80-100) fL MCH 29.5 (26-34) PG MCHC 33.9 (30-36) % RDW 13.3 (11.6-14.8) % Plt Count 218 (150-400) X10^3/uL Neut % (Auto) 72.9 (50-75) % Lymph % (Auto) 17.3 L (25-40) % [place] % (Auto) 5.7 (3-14) % Eos % (Auto) 3.7 (2-4) % Baso % (Auto) 0.4 (0-2) % Neut # (Auto) 5200 (9057-8031) /uL Lymph # (Auto) 1200 (9482-0870) /uL [place] # (Auto) 400 (0-900) /uL Eos # (Auto) 300 (0-450) /uL Baso # (Auto) 0 (0-100) /uL PT 12.1 (9.4-12.5) SECONDS INR 1.1 (0.9-1.3) Sodium 139 (137-145) mmol/L Potassium 4.1 (3.4-5.1) mmol/L Chloride 105 (98-107) mmol/L Carbon Dioxide 24 (22-32) mmol/L BUN 16 (9-20) mg/dL Creatinine 1.05 (0.66-1.25) mg/dL Estimated GFR > 60 (>60) mL/min BUN/Creatinine Ratio 15.2 (6-22) Glucose 128 H (80-110) mg/dL Calcium 9.4 (8.4-10.2) mg/dL Magnesium 2.0 (1.6-2.3) mg/dL Total Bilirubin 1.1 (0.2-1.3) mg/dL AST 40 (17-59) IU/L ALT 28 (<50) IU/L Alkaline Phosphatase 84 (38-126) U/L Total Creatine Kinase 74 (55-170) U/L Troponin I < 0.012 < 0.012 (0.01-0.034) ng/mL NT-Pro-B Natriuret Pep 168 H (<125) pg/mL Total Protein 6.9 (6.3-8.2) g/dL Albumin 4.4 (3.5-5.0) g/dL Globulin 2.5 (1.7-4.1) g/dL Albumin/Globulin Ratio 1.8 (1.0-2.8) TSH 3.56 (0.47-4.68) uIU/mL Blood Type B Negative Antibody Screen Negative MDM Narrative Medical decision making narrative: CC: Syncopal episode in the shower Complicating co-morbidities: Patient has been in bed and in a fasting state for at least 24 hours by choice, history of SVT and abnormal treadmill test with no nuclear medicine study to follow up yet, hypertension Data collected from: patient, Medical records reviewed: History of palpitations, Zio patch in June had shown prolonged episodes of SVT, subsequent exercise treadmill test was abnormal with mild horizontal ST depressions and nuclear stress test was recommended by Cardiology Differential considered: Dehydration with syncopal episode secondary to orthostatic hypotension, SVT in the setting, acute coronary syndrome, kidney failure acute electrolyte abnormalities Exam documented above, pertinent findings include: Pale, dry, 3/6 murmur that patient is aware of, remainder of exam is benign Lab Test results independently reviewed as above. Pertinent findings: CBC is unremarkable with no significant anemia Chemistries are reassuring with no renal failure appreciated, electrolytes are unremarkable Independently reviewed EKG: Sinus bradycardia at a rate of 56. Left axis deviation. No acute ischemic changes Imaging studies independently reviewed: Chest x-ray shows mild cardiomegaly without lung infiltrates CT scan of the head shows no significant pathology Treatments: Fluids Re-evaluations: Upper 2 L of fluid 2 large glasses of water still has 100 cc only in his bladder is feeling significantly better Discussion: 68-year-old gentleman who has essentially been fasting with minimal liquid intake as well for the past 48 hours. Got up and was taking shower with a orthostatic hypotensive episode. He was helped to the floor no trauma. Workup is reassuring he has not significantly dehydrated. Troponin and repeat troponin are unremarkable. EKG is reassuring. At this point I am seeing no indication for additional imaging studies, blood work or hospitalization. All findings reviewed with the patient needs he he is safe for discharge Discharge Plan Departure Patient Disposition: Home Clinical Impression: Orthostatic hypotension Syncope Qualifiers: Syncope type: unspecified Qualified Code(s): R55 - Syncope and collapse Instructions: DI for Orthostatic Hypotension Activity Restrictions/Additional Instructions: Thank you for coming in today I suspect that you were significantly dehydrated after your 2 days of minimal oral intake. When you stood up in the hot shower blood pooled around your feet and you passed out. Fortunately, I am not seeing signs of infection, kidney failure, electrolyte abnormalities, stroke, heart attack or alternate explanations. You responded nicely to 2 L of fluid Please make sure that you have a healthy breakfast this morning with plenty of water over the course of the day If you find that you are getting worse or develop any new symptoms, please feel free to return to the emergency department for further evaluation. Prescriptions: No Action fluoxetine 20 mg capsule 60 mg PO DAILY Qty: 270 2RF gabapentin 300 mg capsule See Rx Instructions .ROUTE .COMPLEX Qty: 270 0RF Dose Instruction: TAKE 1 CAPSULE BY MOUTH THREE TIMES DAILY Rx Instructions: TAKE 1 CAPSULE BY MOUTH THREE TIMES DAILY finasteride 5 mg tablet 5 mg PO DAILY Qty: 90 0RF hydroxyzine HCl 25 mg tablet 25 mg PO 3XD Qty: 270 0RF loratadine 10 mg tablet 10 mg PO DAILY atorvastatin [Lipitor] 40 mg tablet 40 mg PO BEDTIME Qty: 90 3RF lisinopril 10 mg tablet 10 mg PO QDAY Qty: 90 3RF triamterene-hydrochlorothiazid 37.5-25 mg capsule 1 cap PO QDAY Qty: 90 3RF esomeprazole magnesium [Nexium] 20 mg capsule,delayed release(DR/EC) 20 mg PO DAILY Referrals: Nimesh Ryan DO [Primary Care Provider] - Stand Alone Forms: Patient Portal/API
[2023-11-03 07:44] LABS: Alanine Aminotransferase 28 IU/L (<50); Albumin 4.4 g/dL (3.5-5.0); Albumin Globulin Ratio 1.8 (1.0-2.8); Alkaline Phosphatase 84 U/L (38-126); Aspartate Aminotransferase 40 IU/L (17-59); BUN Creatinine Ratio 15.2 (6-22); Bilirubin Total 1.1 mg/dL (0.2-1.3); Blood Urea Nitrogen 16 mg/dL (9-20); Calcium 9.4 mg/dL (8.4-10.2); Carbon Dioxide 24 mmol/L (22-32); Chloride 105 mmol/L (98-107); Creatine Kinase 74 U/L (55-170); Estimated Glomerular Filt Rate > 60 mL/min (>60); Globulin 2.5 g/dL (1.7-4.1); Glucose 128 mg/dL (80-110); Potassium 4.1 mmol/L (3.4-5.1); Sodium 139 mmol/L (137-145); Total Protein 6.9 g/dL (6.3-8.2)
[2023-11-03 07:46] LABS: HEMOLYSIS 79 (0-50)
[2023-11-03 07:56] LABS: NT-proBNP (BNP-Adult 18+) 168 pg/mL (<125); Troponin I < 0.012 ng/mL (0.01-0.034)
[2023-11-03 08:15] LABS: Thyroid Stimulating Hormone 3.56 uIU/mL (0.47-4.68)
[2023-11-03 10:11] LABS: Troponin I < 0.012 ng/mL (0.01-0.034)
== END 2023-11-03 10:52 | disposition home or self-care (01) ==
PROVIDERS: Emergency Medicine; Emergency Provider Emergency Medicine; PCP Family Medicine
DX: I95.1 Orthostatic hypotension (principal); R07.9 Chest pain, unspecified; Z79.899 Other long term (current) drug therapy
CPT/HCPCS: 36415; 51798; 70450; 71045; 80053; 82550; 83735; 83880; 84443; 84484; 85025; 85610; 86850; 86900; 86901; 93005; 96360; 96361; 99284

== ENCOUNTER → 2023-12-13 10:14 | Outpatient (CLI) | payer MEDICARE, SELFPAY ==
--- NOTE | 2023-12-16 17:53 | DI.NM.S_ITS ---
DATE OF SERVICE: 12/13/2023 NUCLEAR CARDIOLOGY MYOCARDIAL PERFUSION STUDY PROCEDURE: Pharmacologic vasodilator stress and rest myocardial perfusion imaging with gating to assess ejection fraction and regional wall motion. ORDERING PROVIDER: Roge Esquivel MD. INDICATIONS: The patient is a 68-year-old male with a history of SVT and an abnormal standard stress test. CARDIAC STRESS: Per protocol, 0.4 mg of regadenoson was infused, augmented by low level walking. With this, he had a normal hemodynamic response and no chest discomfort. His resting ECG shows sinus rhythm with a left anterior fascicular block but normal ST segments. With stress, there is mild ST depression in leads I and aVL with associated mild T-wave inversions. There were no arrhythmias. Per protocol, 25.0 millicuries of technetium-99m Myoview was injected and he was imaged 15 minutes later using a gated SPECT acquisition protocol. Three days prior while at rest, he was injected with 25.0 millicuries of technetium-99m Myoview and then imaged 15 minutes later, again using a gated SPECT acquisition protocol. FINDINGS: RAW DATA: There is fairly good myocardial tracer uptake. The lung/heart ratio is normal at 0.29 with a normal TID ratio of 0.97. QUANTITATED GATED SPECT: The post-stress ejection fraction is estimated at 76% without any focal wall motion abnormality and specifically the inferior wall appears to have normal contractility. The resting ejection fraction is estimated at 72% with a mildly increased left ventricular volume of 116 mL. MYOCARDIAL PERFUSION SCAN: Post-stress supine images show a fairly normal myocardial perfusion pattern except a mild perfusion defect in the mid to distal inferior wall in a pattern suggestive of diaphragmatic attenuation, although this defect persists on the prone images, suggesting it may reflect a true perfusion defect. The resting images show an identical perfusion pattern, again with an inferior perfusion defect that appears unchanged from the post-stress images. IMPRESSION: 1. Probable abnormal myocardial perfusion study but low risk. 2. Small, fixed, mid to distal inferior perfusion defect that persists on the prone images, suggesting a possible non-transmural myocardial infarction although diaphragmatic attenuation artifact cannot be excluded. There is no evidence for any myocardial ischemia. 3. Normal left ventricular systolic function without focal wall motion abnormality but mildly increased left ventricular volumes. 4. No angina or arrhythmias with pharmacologic vasodilator stress augmented with low level walking. He did have modest ST and T-wave abnormalities with stress in the lateral leads but this is nonspecific given the absence of any perfusion evidence of ischemia. Donnie Roach - VINAY/fara/SKB doc#: [id number]/job#: [id number] dd: 12/16/2023 16:22:00 dt: 12/16/2023 16:36:00 DICTATING MD/COPIES TO: rSinivas Santillan MD; Roge Esquivel MD COPIES MNE: SNOW;
== END ==
LOC: NUCM 10:15
PROVIDERS: PCP Family Medicine; Referring Provider Internal Medicine Cardiovascular Disease; Visit Provider Internal Medicine Cardiovascular Disease
DX: I47.10 Supraventricular tachycardia, unspecified (principal); I10 Essential (primary) hypertension; R94.39 Abnormal result of other cardiovascular function study
CPT/HCPCS: 78452; 93017; A9502; J2785

== ENCOUNTER → 2023-12-27 08:39 | Outpatient (CLI) | payer MEDICARE, SELFPAY ==
--- NOTE | 2023-12-27 08:40 | DI.US.S_ITS ---
PROCEDURE: US PERIPH VENOUS LOW EXTREM RT INDICATIONS: Right leg swelling. Rule out DVT TECHNIQUE: Real-time imaging, as well as color and pulse Doppler interrogation, were performed of the lower extremity deep veins from the inguinal ligament to the popliteal fossa, with documentation of the visualized calf veins. COMPARISON: None. FINDINGS: The common femoral, femoral, popliteal, and the visualized calf veins are normally compressible, and free of intraluminal thrombus. Color and pulse Doppler demonstrate normal phasic intraluminal flow. There is normal augmentation response to distal compression maneuver. IMPRESSION: No findings of lower extremity deep venous thrombosis. Dictated by: Haether Manuel M.D. on 12/27/2023 at 9:36 Approved by: Heather Manuel M.D. on 12/27/2023 at 9:36
== END ==
PROVIDERS: PCP Family Medicine; Referring Provider Family Medicine; Visit Provider Family Medicine
DX: M79.89 Other specified soft tissue disorders (principal)
CPT/HCPCS: 93971

== ENCOUNTER → 2024-01-31 08:01 | Outpatient (CLI) | payer MEDICARE, SELFPAY ==
[2024-01-31 09:26] LABS: Alanine Aminotransferase 25 IU/L (<50); Albumin Globulin Ratio 1.7 (1.0-2.8); Alkaline Phosphatase 94 U/L (38-126); Aspartate Aminotransferase 34 IU/L (17-59); BUN Creatinine Ratio 16.8 (6-22); Bilirubin Total 0.6 mg/dL (0.2-1.3); Blood Urea Nitrogen 17 mg/dL (9-20); Calcium 9.6 mg/dL (8.4-10.2); Carbon Dioxide 32 mmol/L (22-32); Chloride 101 mmol/L (98-107); Estimated Glomerular Filt Rate > 60 mL/min (>60); Globulin 2.4 g/dL (1.7-4.1); Glucose 95 mg/dL (80-110); HEMOLYSIS < 15 (0-50); Potassium 4.4 mmol/L (3.4-5.1); Sodium 138 mmol/L (137-145); Total Protein 6.4 g/dL (6.3-8.2)
== END ==
PROVIDERS: PCP Family Medicine; Referring Provider Family Medicine; Visit Provider Family Medicine
DX: I10 Essential (primary) hypertension (principal)
CPT/HCPCS: 36415; 80053

== ENCOUNTER → 2024-06-12 16:29 | Outpatient (CLI) | payer MEDICARE, SELFPAY ==
[2024-06-12 18:14] LABS: Hemoglobin A1C% w Est Avg Glu 5.7 % (4.0-6.0)
[2024-06-12 18:44] LABS: Chloride 101 mmol/L (98-107); HEMOLYSIS < 15 (0-50); Potassium 3.9 mmol/L (3.4-5.1); Sodium 137 mmol/L (137-145)
[2024-06-12 19:01] LABS: BUN Creatinine Ratio 17.9 (6-22); Blood Urea Nitrogen 17 mg/dL (9-20); Calcium 9.5 mg/dL (8.4-10.2); Carbon Dioxide 27 mmol/L (22-32); Cholesterol 138 mg/dL (140-199); Estimated Glomerular Filt Rate > 60 mL/min (>60); Glucose 93 mg/dL (80-110); HDL Cholesterol 57 mg/dL (40-60); LDL Cholesterol Calculated 69 mg/dL (<100); Triglycerides 58 mg/dL (35-150)
[2024-06-12 20:26] LABS: Prostate Specific Antigen Scrn < 0.064 ng/mL (0.1-4.0)
== END ==
PROVIDERS: PCP Family Medicine; Referring Provider Family Medicine; Visit Provider Family Medicine
DX: Z00.00 Encounter for general adult medical examination without abnormal findings (principal); R73.01 Impaired fasting glucose; I10 Essential (primary) hypertension; Z12.5 Encounter for screening for malignant neoplasm of prostate; E78.2 Mixed hyperlipidemia
CPT/HCPCS: 36415; 80048; 80061; 83036; G0103

== ENCOUNTER → 2024-11-16 15:00 | Outpatient (CLI) | payer MEDICARE, SELFPAY ==
[2024-11-16 15:20] LABS: Add Manual Diff / Slide Review NO; Hematocrit 36.6 % (41-53); Hemoglobin 12.5 g/dL (13.5-17.5); Lymphocytes Absolute Auto 2000 /uL (1100-4500); Mean Corpuscular HGB Conc 34.2 % (30-36); Mean Corpuscular Hemoglobin 29.9 PG (26-34); Mean Corpuscular Volume 87.4 fL (80-100); Platelet Count 249 X10^3/uL (150-400)
[2024-11-16 15:51] LABS: Alanine Aminotransferase 21 IU/L (<50); Albumin 4.4 g/dL (3.5-5.0); Albumin Globulin Ratio 1.9 (1.0-2.8); Alkaline Phosphatase 100 U/L (38-126); Blood Urea Nitrogen 16 mg/dL (9-20); Calcium 9.4 mg/dL (8.4-10.2); Carbon Dioxide 28 mmol/L (22-32); Chloride 102 mmol/L (98-107); Estimated Glomerular Filt Rate > 60 mL/min (>60); Globulin 2.3 g/dL (1.7-4.1); Glucose 115 mg/dL (70-99); HEMOLYSIS < 15 (0-50); Potassium 4.2 mmol/L (3.4-5.1); Sodium 138 mmol/L (137-145); Total Protein 6.7 g/dL (6.3-8.2)
== END ==
PROVIDERS: PCP Family Medicine; Referring Provider Family Medicine; Visit Provider Family Medicine
DX: R17 Unspecified jaundice (principal)
CPT/HCPCS: 36415; 80053; 85025